=== PATIENT | male | born 1985 | race Caucasian/White ===

== ENCOUNTER 2024-06-13 18:25 | Emergency (ER) | payer OTHER ==
[~2024-06-13] VITALS: Ht 182.9 cm; Wt 86.4 kg
[~2024-06-13 18:25] MED LIST: NO HOME MEDICATIONS; PERCOCET 5/321 UDTAB PO
[2024-06-13 18:46] LABS: BASO # 0.1 K/mm3 (0.0-0.2); BASO % 0.8 % (0.0-2.0); EOS # 0.2 K/mm3 (0.0-0.7); EOS % 1.7 % (0.0-4.0); GRAN % 44.5 % (42.2-75.2); HEMATOCRIT 43.3 % (42.0-52.0); HEMOGLOBIN 15.4 g/dl (13.5-18.0); LYMPH # 3.9 K/mm3 (1.2-3.4); LYMPH % 43.1 % (20.0-51.0); MEAN CELL VOLUME 84 fl (80.0-100.0); MEAN CORPUSCULAR HEMOGLOBIN 30 pg (27-31); MEAN CORPUSCULAR HGB CONC 36 g/dl (33.0-37.0); MONO # 0.9 K/mm3 (0.1-0.6); MONO % 9.5 % (1.7-9.3); PLATELET COUNT 336 K/mm3 (130-400); RED BLOOD COUNT 5.18 M/mm3 (4.20-5.60); REDCELL DISTRIBUTION WIDTH-CV 12.4 % (11.5-14.5)
[2024-06-13 18:59] LABS: ALANINE AMINOTRANSFERASE 40 U/L (0-55); ALBUMIN 4.3 g/dL (3.5-5.0); ALKALINE PHOSPHATASE 60 U/L (40-150); ANION GAP 16 mmol/L (7-16); AST,SGOT 24 U/L (5-34); BILIRUBIN,TOTAL 0.6 mg/dL (0.2-1.2); BLOOD UREA NITROGEN 13 mg/dL (9-21); CALCIUM 9.5 mg/dL (8.4-10.2); CHLORIDE 102 mEq/L (98-107); CREATININE, serum 1.25 mg/dL (0.72-1.25); GLUCOSE 136 mg/dL (70-99); LIPASE 59 U/L (8-78); POTASSIUM 3.3 mEq/L (3.5-4.5); SODIUM 139 mEq/L (136-145); TOTAL PROTEIN 7.4 g/dl (6.2-8.1)
[2024-06-13 19:08] LABS: TROPONIN-I < 0.010 ng/mL (0.00-0.033)
[2024-06-13 19:29] LABS: ALCOHOL(ethanol),MEDICAL < 10 mg/dL (0-10)
[2024-06-13] MEDS ORDERED: NS 1,000 ML IV ONE (19:30)
[2024-06-13] MEDS ORDERED: KEPPRA 500MG500 MG PO (20:07)
[2024-06-13] MEDS ORDERED: levETIRAcetam 1,000 MG in Syringe 1 EACH IV ONE (20:15)
[2024-06-13 20:18] VITALS: BP 126/75; PULSE 61; TEMP 97.2
== END 2024-06-13 20:32 | disposition home or self-care (01) ==
LOC: COL.ER 18:25
PROVIDERS: Physician Assistant
DX: R41.82 Altered mental status, unspecified (principal); E22.1 Hyperprolactinemia
CPT/HCPCS: J1953; J7030